=== PATIENT | male | born 1955 | race Caucasian/White ===

== ENCOUNTER 2020-06-02 10:41 | Inpatient (IN) ==
[2020-06-02 12:26] LABS: ABS Eosinophils 0.2 10^3/ul (0-0.6); ABS Lymphocytes 0.8 10^3/ul (1.0-4.8); ABS Monocytes 1.1 10^3/ul (0-0.8); ABS Neutrophils 4.7 10^3/ul (1.5-7.7); Eosinophil % 2.9 %; Hematocrit 25 % (42-52); Hemoglobin 7.7 g/dL (14.0-18.0); Lymphocyte % 12.2 %; Mean Corpuscular HGB Conc 31 g/dL (31-36); Mean Corpuscular Hemoglobin 23 pg (27-31); Mean Corpuscular Volume 73 fL (80-94); Mean Platelet Volume 7.3 fL (7.4-10.4); Platelet Count 287 10^3/uL (150-450); Red Blood Count 3.37 10^6 /uL (4.18-5.48); Red Cell Distribution Width 17 % (10-15); White Blood Count 6.9 10^3/uL (3.5-10.8)
[2020-06-02] MEDS ORDERED: Piperacillin/Tazobac ADVAN 3.375 GM in NS 0.9% 100 ml BAG 100 ML IV ONE (12:26)
[2020-06-02] MEDS ORDERED: NS 0.9% 1000 ml BAG 1,000 ML IV SCH (12:30)
[2020-06-02 12:33] LABS: Fibrinogen 368.3 mg/dL (110.8-404.3); INR 1.28 (0.82-1.09)
[2020-06-02] MEDS ORDERED: Clindamycin 600 MG/D5W BAG 600 MG/50 ML BAG IV ONE (12:33)
[2020-06-02 12:34] LABS: Influenza A Molecular Negative (Negative); Influenza B Molecular Negative (Negative)
[2020-06-02 12:47] LABS: ALT 11 U/L (7-52); AST 17 U/L (13-39); Albumin 2.8 g/dL (3.2-5.2); Albumin/Globulin Ratio 0.7 (1-3); Alkaline Phosphatase 84 U/L (34-104); Anion Gap 7 mmol/L (2-11); BUN/Creatinine Ratio 16.7 (8-20); Blood Urea Nitrogen 12 mg/dL (6-24); C Reactive Protein 65.69 mg/L (<8.01); CO2 Carbon Dioxide 26 mmol/L (22-32); Calcium 8.3 mg/dL (8.6-10.3); Chloride 99 mmol/L (101-111); Creatine Kinase 92 U/L (10-223); EGFR African American 133.8 (>60); EGFR Non-African American 110.6 (>60); Globulin 3.9 g/dL (2-4); Glucose 160 mg/dL (70-100); Potassium 3.9 mmol/L (3.5-5.0); Sodium 132 mmol/L (135-145); Total Protein 6.7 g/dL (6.4-8.9)
[2020-06-02 12:49] LABS: Urine Appearance Clear; Urine Bilirubin Negative (Negative); Urine Blood Negative (Negative); Urine Color Yellow; Urine Glucose Negative (Negative); Urine Ketones Negative (Negative); Urine Nitrite Negative (Negative); Urine Protein Negative (Negative); Urine Specific Gravity 1.026 (1.010-1.030); Urine Urobilinogen Negative (Negative)
[2020-06-02 13:39] LABS: Erythrocyte Sed Rate 91 mm/Hr (0-19)
[2020-06-02] MEDS ORDERED: Ondansetron 4 mg VIAL 2 MG/ML 2 ml VIAL IV PRN (14:24)
[2020-06-02] MEDS ORDERED: Al Hydrox/Mg Hydrox/Simet LIQ 30 ML UDC PO PRN (14:24)
[2020-06-02] MEDS ORDERED: Magnesium Hydroxide LIQ 30 ML UDC PO PRN (14:37)
[2020-06-02] MEDS ORDERED: Dextrose 50% Syringe 50 ml 25 GM/50 ML SYRINGE IV PUSH PRN (14:40)
[2020-06-02] MEDS ORDERED: Cefepime 2 GM in Dextrose 2 GM/50 ML BAG IV ONE (14:40)
[2020-06-02] MEDS ORDERED: Vancomycin 1,500 MG in NS 0.9% 250 ml 250 ML IVPB ONE (15:00)
[2020-06-02] MEDS ORDERED: Diclofenac 1% GEL (NF) 100 GM TUBE TOPICAL SCH (15:00)
[2020-06-02] MEDS ORDERED: Vancomycin per Pharmacy 1 EA NOTE FOLLOW UP SCH (15:00)
[2020-06-02] MEDS ORDERED: Iodixanol (CONTRAST) 320 MG/ML 100 ML SDV IV ONE (15:14)
[2020-06-02] MEDS: Lactated Ringers 1000 ml BAG 1,000 ML IV SCH (17:14)
[2020-06-02] MEDS: metroNIDAZOLE IV 500 MG/100ML 500 MG/100 ML BAG IVPB SCH (17:14)
[2020-06-02] MEDS: HYDROcodone/ACETAMIN 5/325 mg TAB PO PRN ×2 (17:20→23:39)
[2020-06-02 17:33] LABS: Hematocrit 28 % (42-52); Hemoglobin 8.8 g/dL (14.0-18.0)
[2020-06-02] MEDS ORDERED: Diclofenac 1% GEL (NF) 100 GM TUBE TOPICAL PRN (18:07)
[2020-06-02] MEDS: Collagenase 250 units/gm OINT 1 tube TOPICAL SCH (18:41)
[2020-06-02 19:57] LABS: Prealbumin 8 mg/dL (18-38); Total Iron Binding Capacity 294 mcg/dL (250-450); Transferrin 210 mg/dL (203-362)
[2020-06-02 19:58] LABS: % Iron Saturation 7 % (15-55); Iron < 20 ug/dL (50-212); Unsaturated Iron Binding < 279 ug/dL
[2020-06-02 20:19] LABS: Ferritin 49.1 ng/mL (24-336)
[2020-06-02 20:22] LABS: Folate 18.74 ng/mL (>3.99)
[2020-06-02 20:23] LABS: Vitamin B12 > 1450 pg/mL (180-914)
[2020-06-02] MEDS: Insulin GLARGINE 100 un/ml 10 ml VIAL SUBCUT SCH (21:33)
[2020-06-02] MEDS: Heparin 5000 UNITS/ML 1 mL VIAL SUBCUT SCH (21:34)
[2020-06-02] MEDS: DULoxetine DR 30 mg CAP PO SCH (21:37)
[2020-06-03] MEDS: Vancomycin 1,250 MG in NS 0.9% 250 ml 250 ML IVPB SCH ×2 (01:55→09:50)
[2020-06-03] MEDS: Cefepime 2 GM in Dextrose 2 GM/50 ML BAG IV SCH ×2 (03:36→15:13)
[2020-06-03] MEDS: metroNIDAZOLE IV 500 MG/100ML 500 MG/100 ML BAG IVPB SCH ×2 (04:50→17:13)
[2020-06-03] MEDS: Lactated Ringers 1000 ml BAG 1,000 ML IV SCH ×2 (06:23→15:13)
[2020-06-03] MEDS: Heparin 5000 UNITS/ML 1 mL VIAL SUBCUT SCH ×3 (06:23→22:19)
[2020-06-03] MEDS: DULoxetine DR 30 mg CAP PO SCH ×2 (08:08→22:20)
[2020-06-03] MEDS: Collagenase 250 units/gm OINT 1 tube TOPICAL SCH (08:09)
[2020-06-03] MEDS: HYDROcodone/ACETAMIN 5/325 mg TAB PO PRN (09:50)
[2020-06-03 10:53] LABS: ABS Eosinophils 0.1 10^3/ul (0-0.6); ABS Lymphocytes 0.8 10^3/ul (1.0-4.8); ABS Monocytes 1.1 10^3/ul (0-0.8); ABS Neutrophils 3.4 10^3/ul (1.5-7.7); Hematocrit 26 % (42-52); Lymphocyte % 14.9 %; Mean Corpuscular HGB Conc 31 g/dL (31-36); Mean Corpuscular Hemoglobin 23 pg (27-31); Mean Corpuscular Volume 74 fL (80-94); Mean Platelet Volume 6.9 fL (7.4-10.4); Nucleated Red Blood Cells % 0.1; Platelet Count 265 10^3/uL (150-450); Red Blood Count 3.48 10^6 /uL (4.18-5.48); Red Cell Distribution Width 17 % (10-15); White Blood Count 5.4 10^3/uL (3.5-10.8)
[2020-06-03 11:02] LABS: Albumin 2.6 g/dL (3.2-5.2); Albumin/Globulin Ratio 0.7 (1-3); BUN/Creatinine Ratio 15.9 (8-20); Calcium 8.1 mg/dL (8.6-10.3); EGFR African American 140.6 (>60); EGFR Non-African American 116.2 (>60); Globulin 3.7 g/dL (2-4); Potassium 3.9 mmol/L (3.5-5.0); Total Bilirubin 0.4 mg/dL (0.2-1.0); Total Protein 6.3 g/dL (6.4-8.9)
[2020-06-03] MEDS ORDERED: Iodixanol (CONTRAST) 320 MG/ML 100 ML SDV IV ONE (13:43)
[2020-06-03] MEDS ORDERED: SODIUM HYPOCHLORITE 0.5% TOPICAL SCH (14:37)
[2020-06-03] MEDS ORDERED: Remdesivir 200 mg LOADING DOSE X1 (LIQ Vial) IV ONE (18:00)
[2020-06-03] MEDS ORDERED: Vancomycin Trough Check NOTE FOLLOW UP ONE (18:00)
[2020-06-03] MEDS ORDERED: Vancomycin 1,500 MG in NS 0.9% 250 ml 250 ML IVPB SCH ×2 (20:28→21:00)
[2020-06-03] MEDS: Insulin GLARGINE 100 un/ml 10 ml VIAL SUBCUT SCH (22:18)
[2020-06-03] MEDS: Vancomycin 1,500 MG in NS 0.9% 250 ml 250 ML IVPB SCH (22:45)
[2020-06-04] MEDS: Cefepime 2 GM in Dextrose 2 GM/50 ML BAG IV SCH ×3 (06:00→17:06)
[2020-06-04] MEDS: Vancomycin 1,250 MG in NS 0.9% 250 ml 250 ML IVPB SCH (06:20)
[2020-06-04] MEDS: metroNIDAZOLE IV 500 MG/100ML 500 MG/100 ML BAG IVPB SCH ×2 (07:09→17:05)
[2020-06-04] MEDS: DULoxetine DR 30 mg CAP PO SCH ×2 (09:09→20:35)
[2020-06-04] MEDS: Vancomycin 1,500 MG in NS 0.9% 250 ml 250 ML IVPB SCH ×3 (09:11→20:47)
[2020-06-04] MEDS: Collagenase 250 units/gm OINT 1 tube TOPICAL SCH (09:13)
[2020-06-04] MEDS: Heparin 5000 UNITS/ML 1 mL VIAL SUBCUT SCH ×3 (09:30→20:48)
[2020-06-04 11:28] LABS: ABS Lymphocytes 0.7 10^3/ul (1.0-4.8); ABS Monocytes 0.5 10^3/ul (0-0.8); ABS Neutrophils 2.9 10^3/ul (1.5-7.7); Hematocrit 27 % (42-52); Hemoglobin 8.4 g/dL (14.0-18.0); Lymphocyte % 16.5 %; Mean Corpuscular HGB Conc 31 g/dL (31-36); Mean Corpuscular Hemoglobin 23 pg (27-31); Mean Corpuscular Volume 73 fL (80-94); Mean Platelet Volume 6.7 fL (7.4-10.4); Nucleated Red Blood Cells % 0.1; Platelet Count 271 10^3/uL (150-450); Red Blood Count 3.67 10^6 /uL (4.18-5.48); Red Cell Distribution Width 17 % (10-15); White Blood Count 4.1 10^3/uL (3.5-10.8)
[2020-06-04 11:31] LABS: BUN/Creatinine Ratio 20.6 (8-20); Calcium 7.8 mg/dL (8.6-10.3); EGFR African American 156.1 (>60)
[2020-06-04] MEDS ORDERED: Buffered Lidocaine 1% SYRIN 1 ml INTRADERM ONE (17:52)
[2020-06-04] MEDS: HYDROcodone/ACETAMIN 5/325 mg TAB PO PRN (20:45)
[2020-06-04] MEDS: Remdesivir 100 mg Q24H MAINTENANCE DOSING (LIQ Vial) IV SCH (20:47)
[2020-06-04] MEDS: Insulin GLARGINE 100 un/ml 10 ml VIAL SUBCUT SCH (20:48)
[2020-06-05] MEDS: metroNIDAZOLE IV 500 MG/100ML 500 MG/100 ML BAG IVPB SCH ×2 (02:35→16:07)
[2020-06-05 04:54] LABS: ABS Lymphocytes 0.7 10^3/ul (1.0-4.8); ABS Monocytes 0.3 10^3/ul (0-0.8); ABS Neutrophils 3.4 10^3/ul (1.5-7.7); Hematocrit 27 % (42-52); Hemoglobin 8.7 g/dL (14.0-18.0); Lymphocyte % 14.9 %; Mean Corpuscular HGB Conc 32 g/dL (31-36); Mean Corpuscular Hemoglobin 23 pg (27-31); Mean Corpuscular Volume 73 fL (80-94); Mean Platelet Volume 6.7 fL (7.4-10.4); Nucleated Red Blood Cells % 0.1; Platelet Count 267 10^3/uL (150-450); Red Blood Count 3.72 10^6 /uL (4.18-5.48); Red Cell Distribution Width 17 % (10-15); White Blood Count 4.4 10^3/uL (3.5-10.8)
[2020-06-05 05:06] LABS: BUN/Creatinine Ratio 28.6 (8-20); Calcium 8.1 mg/dL (8.6-10.3); EGFR African American 171.8 (>60); EGFR African American 178.9 (>60); EGFR Non-African American 147.8 (>60); Potassium 4.3 mmol/L (3.5-5.0); Vancomycin Trough 22.4 mcg/mL
[2020-06-05] MEDS: Cefepime 2 GM in Dextrose 2 GM/50 ML BAG IV SCH ×2 (05:11→20:14)
[2020-06-05] MEDS: Heparin 5000 UNITS/ML 1 mL VIAL SUBCUT SCH ×3 (05:11→22:01)
[2020-06-05] MEDS ORDERED: Vancomycin Trough Check NOTE FOLLOW UP ONE (05:30)
[2020-06-05] MEDS: Vancomycin 1,500 MG in NS 0.9% 250 ml 250 ML IVPB SCH (06:18)
[2020-06-05] MEDS: DULoxetine DR 30 mg CAP PO SCH ×2 (08:03→21:58)
[2020-06-05] MEDS: HYDROcodone/ACETAMIN 5/325 mg TAB PO PRN ×3 (08:10→22:18)
[2020-06-05] MEDS ORDERED: Vancomycin 1,250 MG in NS 0.9% 250 ml 250 ML IVPB SCH (11:23)
[2020-06-05] MEDS: Collagenase 250 units/gm OINT 1 tube TOPICAL SCH (12:32)
[2020-06-05] MEDS: Vancomycin 1,250 MG in NS 0.9% 250 ml 250 ML IVPB SCH ×2 (15:13→22:07)
[2020-06-05] MEDS: Remdesivir 100 mg Q24H MAINTENANCE DOSING (LIQ Vial) IV SCH (18:06)
[2020-06-05] MEDS: Insulin GLARGINE 100 un/ml 10 ml VIAL SUBCUT SCH (22:00)
[2020-06-06] MEDS: Heparin 5000 UNITS/ML 1 mL VIAL SUBCUT SCH ×3 (05:05→22:06)
[2020-06-06] MEDS: HYDROcodone/ACETAMIN 5/325 mg TAB PO PRN ×3 (05:05→22:03)
[2020-06-06] MEDS: Vancomycin 1,250 MG in NS 0.9% 250 ml 250 ML IVPB SCH ×2 (05:06→14:29)
[2020-06-06] MEDS: metroNIDAZOLE IV 500 MG/100ML 500 MG/100 ML BAG IVPB SCH (05:06)
[2020-06-06] MEDS: Cefepime 2 GM in Dextrose 2 GM/50 ML BAG IV SCH ×2 (05:06→08:49)
[2020-06-06 07:37] LABS: ABS Lymphocytes 0.8 10^3/ul (1.0-4.8); ABS Monocytes 0.2 10^3/ul (0-0.8); ABS Neutrophils 4.1 10^3/ul (1.5-7.7); Eosinophil % 0.1 %; Hematocrit 29 % (42-52); Hemoglobin 9.1 g/dL (14.0-18.0); Lymphocyte % 14.6 %; Mean Corpuscular HGB Conc 31 g/dL (31-36); Mean Corpuscular Hemoglobin 23 pg (27-31); Mean Corpuscular Volume 73 fL (80-94); Platelet Count 270 10^3/uL (150-450); Red Blood Count 3.99 10^6 /uL (4.18-5.48); Red Cell Distribution Width 17 % (10-15); White Blood Count 5.1 10^3/uL (3.5-10.8)
[2020-06-06 07:47] LABS: BUN/Creatinine Ratio 30.5 (8-20); C Reactive Protein 35.33 mg/L (<8.01); EGFR African American 168.4 (>60); EGFR Non-African American 139.2 (>60); Potassium 4.2 mmol/L (3.5-5.0)
[2020-06-06] MEDS: DULoxetine DR 30 mg CAP PO SCH ×2 (08:40→22:05)
[2020-06-06] MEDS: Collagenase 250 units/gm OINT 1 tube TOPICAL SCH (08:49)
[2020-06-06] MEDS ORDERED: Iodixanol (CONTRAST) 320 MG/ML 100 ML SDV IV ONE (11:30)
[2020-06-06] MEDS ORDERED: Buffered Lidocaine 1% SYRIN 1 ml INTRADERM ONE (16:58)
[2020-06-06] MEDS: Remdesivir 100 mg Q24H MAINTENANCE DOSING (LIQ Vial) IV SCH (18:04)
[2020-06-06] MEDS: Insulin GLARGINE 100 un/ml 10 ml VIAL SUBCUT SCH (22:06)
[2020-06-07] MEDS ORDERED: Vancomycin Trough Check NOTE FOLLOW UP ONE (05:30)
[2020-06-07] MEDS: Heparin 5000 UNITS/ML 1 mL VIAL SUBCUT SCH ×3 (05:45→20:41)
[2020-06-07 06:33] LABS: ABS Monocytes 0.4 10^3/ul (0-0.8); ABS Neutrophils 3.1 10^3/ul (1.5-7.7); Hematocrit 28 % (42-52); Hemoglobin 9.1 g/dL (14.0-18.0); Lymphocyte % 22.1 %; Mean Corpuscular HGB Conc 32 g/dL (31-36); Mean Corpuscular Hemoglobin 23 pg (27-31); Mean Corpuscular Volume 72 fL (80-94); Mean Platelet Volume 6.8 fL (7.4-10.4); Nucleated Red Blood Cells % 0.1; Platelet Count 269 10^3/uL (150-450); Red Blood Count 3.96 10^6 /uL (4.18-5.48); Red Cell Distribution Width 17 % (10-15); White Blood Count 4.6 10^3/uL (3.5-10.8)
[2020-06-07 06:53] LABS: BUN/Creatinine Ratio 31.6 (8-20); Calcium 8.3 mg/dL (8.6-10.3); EGFR African American 175.3 (>60); EGFR Non-African American 144.8 (>60); Potassium 4.3 mmol/L (3.5-5.0)
[2020-06-07] MEDS: HYDROcodone/ACETAMIN 5/325 mg TAB PO PRN ×2 (07:20→14:19)
[2020-06-07] MEDS: DULoxetine DR 30 mg CAP PO SCH ×2 (11:33→20:38)
[2020-06-07] MEDS: Collagenase 250 units/gm OINT 1 tube TOPICAL SCH (11:35)
[2020-06-07] MEDS: Remdesivir 100 mg Q24H MAINTENANCE DOSING (LIQ Vial) IV SCH (17:01)
[2020-06-07] MEDS ORDERED: Insulin GLARGINE 100 un/ml 10 ml VIAL SUBCUT SCH (21:00)
[2020-06-08] MEDS: Heparin 5000 UNITS/ML 1 mL VIAL SUBCUT SCH (06:42)
[2020-06-08 06:55] LABS: ABS Lymphocytes 1.5 10^3/ul (1.0-4.8); ABS Monocytes 0.6 10^3/ul (0-0.8); Hematocrit 30 % (42-52); Hemoglobin 9.4 g/dL (14.0-18.0); Lymphocyte % 24.9 %; Mean Corpuscular HGB Conc 32 g/dL (31-36); Mean Corpuscular Hemoglobin 23 pg (27-31); Mean Corpuscular Volume 72 fL (80-94); Mean Platelet Volume 7.2 fL (7.4-10.4); Nucleated Red Blood Cells % 0.1; Platelet Count 280 10^3/uL (150-450); Red Cell Distribution Width 17 % (10-15); White Blood Count 6.1 10^3/uL (3.5-10.8)
[2020-06-08 07:10] LABS: BUN/Creatinine Ratio 32.8 (8-20); Calcium 8.4 mg/dL (8.6-10.3); EGFR African American 171.8 (>60); Potassium 4.1 mmol/L (3.5-5.0)
[2020-06-08] MEDS: DULoxetine DR 30 mg CAP PO SCH (08:51)
[2020-06-08] MEDS: HYDROcodone/ACETAMIN 5/325 mg TAB PO PRN (10:46)
[2020-06-08] MEDS: Collagenase 250 units/gm OINT 1 tube TOPICAL SCH (11:30)
[2020-06-08 11:32] VITALS: BP 123/81
== END 2020-06-08 11:25 | disposition short-term general hospital (02) | DRG 137 ==
LOC: ED 10:41 → MED 14:24
PROVIDERS: ADMIT Pediatrics; ATTEND Student in an Organized Health Care Education/Training Program